=== PATIENT | female | born 1945 | race Caucasian/White ===

== ENCOUNTER → 2017-10-04 | Outpatient (CLI) | payer OTHER, MEDICARE ==
[~2017-10-04] MED LIST: AMLODIPINE BESY10 MG PO; ASPIR-TRIN325 M1 PO; BISAC-EVAC10 MG PR; BUDEPRION XL300 MG PO; COREG25 M1 PO; COZAAR50 MG PO; CYMBALTA60 MG PO; CYTOTEC200 MCG PO; DICLOFENAC SODI75 MG PO; DIOVAN40 MG PO; DIOVAN80 MG PO; KLOR-CON M2020 MEQ PO; LASIX20 MG PO; LORAZEPAM1 MG PO; MAG-OXIDE400 MG PO; NEXIUM40 MG PO; ORENCIA125 MG/1 M IM/IV; PANTOPRAZOLE SO40 MG PO; PRAVACHOL80 MG PO; PROMETHAZINE HC25 M1 PO; ROXICODONE5 MG PO; SEROQUEL100 MG PO; SEROQUEL50 MG PO; SIMVASTATIN40 MG PO; VALIUM5 MG PO; VITAMIN D2400 UNIT PO; VOLTAREN75 MG PO; ZOLOFT100 MG PO; ZOLOFT50 MG PO
== END | disposition home or self-care (01) ==
LOC: RAD 13:33
DX: M24.28 Disorder of ligament, vertebrae (principal); M47.892 Other spondylosis, cervical region; M43.12 Spondylolisthesis, cervical region; M25.78 Osteophyte, vertebrae; G95.89 Other specified diseases of spinal cord; M46.92 Unspecified inflammatory spondylopathy, cervical region; R93.7 Abnormal findings on diagnostic imaging of other parts of musculoskeletal system; R53.1 Weakness
CPT/HCPCS: 62302; 72126